=== PATIENT | female | born 1980 | race Caucasian/White ===

== ENCOUNTER 2023-07-12 06:59 | Day surgery (SDC) | payer MEDICAID ==
[~2023-07-12] VITALS: Ht 167.6 cm; Wt 115.7 kg
[2023-07-12] MEDS ORDERED: MEPERIDINE 100 MG INJ. 100 MG/ML VIAL ONE (07:15)
[2023-07-12] MEDS ORDERED: MIDAZOLAM HCL 5 MG/5 ML VIAL ONE (07:16)
[2023-07-12 07:36] LABS: HCG,QUAL RESULT NEGATIVE (NEGATIVE)
[2023-07-12 08:24] VITALS: O2SAT 97
[2023-07-12 12:56] VITALS: BP_SYST 120; PULSE 94; RESP 18
== END 2023-07-12 11:30 | disposition home or self-care (01) ==
LOC: SDS 06:59 → SMU 07:01 → SDS 11:30
PROVIDERS: ATTEND Internal Medicine Gastroenterology
DX: K21.9 Gastro-esophageal reflux disease without esophagitis (principal); K29.50 Unspecified chronic gastritis without bleeding; E66.01 Morbid (severe) obesity due to excess calories; J45.909 Unspecified asthma, uncomplicated; F41.9 Anxiety disorder, unspecified; I10 Essential (primary) hypertension; Z79.899 Other long term (current) drug therapy; Z68.42 Body mass index [BMI] 45.0-49.9, adult
CPT/HCPCS: 43239; 99152; 87081; 84703; 36415; 88305; 88312; 88313; G0378; J2250; J2175